=== PATIENT | female | born 1965 | race Caucasian/White ===

== ENCOUNTER 2023-07-21 10:05 | Outpatient (CLI) | payer OTHER, SELFPAY ==
--- NOTE | 2023-07-21 10:26 | W.ANESCHARGE ---
Anesthesia Charges Start Date/Time Anesthesia Start Date: 07/21/23 Anesthesia Start Time: 10:55 Stop Date/Time Anesthesia Stop Date: 07/21/23 Anesthesia Stop Time: 11:10
--- NOTE | 2023-07-21 11:14 | W.ANESCHARGE ---
Anesthesia Charges Start Date/Time Anesthesia Start Date: 07/21/23 Anesthesia Start Time: 10:55 Stop Date/Time Anesthesia Stop Date: 07/21/23 Anesthesia Stop Time: 11:10
== END 2023-07-21 10:06 | disposition home or self-care (01) ==
PROVIDERS: PCP Family Medicine; Visit Provider Internal Medicine
DX: R13.10 Dysphagia, unspecified (principal); K22.10 Ulcer of esophagus without bleeding
CPT/HCPCS: 00731; 43235; J2704; J3490